=== PATIENT | male | born 1985 | race Caucasian/White ===

== ENCOUNTER → 2019-07-01 | Outpatient (CLI) | payer OTHER ==
[~2019-07-01] MED LIST: COZAAR100 MG PO; MEDROL 4MG DOSPA4 MG PO; NORCO 325 MG-7.1 TAB PO; TOPROL XL 25MG25 MG PO
== END ==
LOC: COL.RAD 10:30
DX: M47.26 Other spondylosis with radiculopathy, lumbar region (principal)